=== PATIENT | female | born 1995 | race Caucasian/White ===

== ENCOUNTER 2017-05-21 18:46 | Emergency (ER) | payer OTHER ==
[~2017-05-21] VITALS: Ht 152.4 cm; Wt 48.1 kg
[2017-05-21 18:50] VITALS: TEMP 36.3; Ht 152.4 cm; Wt 48.1 kg
[2017-05-21] MEDS ORDERED: SODIUM CHLORIDE 0.9% 1000ML 1,000 ML IV STA (19:04)
[2017-05-21 19:14] VITALS: O2SAT 99
[2017-05-21 20:19] LABS: BASO % 0.2 %; BASO ABS # 0.01 K/uL (0-0.2); EOS % 0.2 %; EOS ABS # 0.01 K/uL (0-0.5); HEMATOCRIT 38.8 % (37-47); HEMOGLOBIN 13.5 g/dL (12.0-16.0); IG# 0.02 K/uL (0.00-0.02); LYMPH % 23.4 %; LYMPH ABS # 0.98 K/uL (1.2-3.4); MEAN CELL VOLUME 88.2 fL (80-100); MEAN CORPUSCULAR HEMOGLOBIN 30.7 pg (25-34); MEAN CORPUSCULAR HGB CONC 34.8 g/dl (32-36); MEAN PLATELET VOLUME 11.7 fL (7.4-10.4); MONO % 7.6 %; MONO ABS # 0.32 K/uL (0.11-0.59); NEUT % 68.1 %; NEUT ABS # 2.85 K/uL (1.4-6.5); PLATELET COUNT 215 K/uL (130-400); RED CELL DISTRIBUTION WIDTH CV 12.6 % (11.5-14.5); RED CELL DISTRIBUTION WIDTH SD 41.1 fL (36.4-46.3); WHITE BLOOD COUNT 4.19 K/uL (4.8-10.8)
[2017-05-21 20:46] LABS: ALBUMIN 4.1 gm/dl (3.4-5.0); ALT/SGPT 17 U/L (12-78); AST/SGOT 20 U/L (15-37); BLOOD UREA NITROGEN 11 mg/dl (7-18); CALCIUM 8.4 mg/dl (8.5-10.1); CARBON DIOXIDE 23 mmol/L (21-32); CREATININE 0.71 mg/dl (0.60-1.20); GLUCOSE 87 mg/dl (70-99); LIPASE 96 U/L (73-393); POTASSIUM 3.8 mmol/L (3.5-5.1); SODIUM 140 mmol/L (136-145)
[2017-05-21 20:49] LABS: ALKALINE PHOSPHATASE 44 U/L (45-117); TOTAL PROTEIN 7.6 gm/dl (6.4-8.2)
[2017-05-21 20:56] VITALS: BP 108/79; PULSE 86; O2SAT 97
--- NOTE | 2017-05-21 23:18 | EMERGENCY ROOM VISIT NOTE ---
History Report prepared by Miguel: Marisa Torres Under the Supervision of: Dr. Alfredo Hall M.D. First contact with patient: 18:54 Chief Complaint: SYNCOPE (NEAR SYNCOPE) Stated Complaint: SEIZURE History of Present Illness The patient is a 22 year old female who presents to the Emergency Room with complaints of an episode of syncope occurring half an hour ago. The patient states that she was at a crowded concert. She reports that she all of a sudden felt warm and weighed down. She states that her legs became weak and had wobbly vision. She reports that she then fell to the ground. She states that she felt fine once she was outside, but her friends were concerned and wanted her to come get checked out. The patient complains of some wobbly vision still. The patient denies nausea, a headache, numbness, incontinence, abdominal pain, rib pain, biting her tongue, shortness of breath, chest pain, neck pain, hitting her head, hematochezia, heavy vaginal bleeding, urinary symptoms, hitting her head, a history of seizures, and a history of passing out. She notes that she ate before going out and believes she has drank enough liquids today. She notes that she was sick last week, but is no longer experiencing any symptoms. The patient notes that she smokes marijuana. Source of History: patient Onset: half hour ago Position: other (global) Quality: other (syncope) Timing: other (episode) Modifying Factors (Relieving): other (cool air) Associated Symptoms: + weakness, No headache, No neck pain, No chest pain, No SOB, No nausea, No abdominal pain, No hematochezia, No urinary symptoms, No numbness Note: The patient complains of vision changes. The patient denies incontinence, rib pain, biting her tongue, hitting her head, and heavy vaginal bleeding. Review of Systems See HPI for pertinent positives & negatives. A total of 10 systems reviewed and were otherwise negative. Past Medical & Surgical Medical Problems: (1) No Known Active Medical Problems Old medical records were reviewed. Nurse's notes were reviewed and I agree with. Family History No significant family history Social History Smoking Status: Current Every Day Smoker Drug Use: marijuana Marital Status: in relationship Housing Status: lives with roommate Occupation Status: [employer] student Current/Historical Medications No Active Prescriptions or Reported Meds Allergies Coded Allergies: No Known Allergies (Unverified , 05/21/17) Physical Exam Vital Signs Date Time Temp Pulse Resp B/P (MAP) Pulse Ox O2 Delivery O2 Flow Rate FiO2 05/21/17 20:56 86 17 108/79 97 05/21/17 20:27 84 05/21/17 20:15 83 22 99 Room Air 05/21/17 19:49 97/72 05/21/17 19:45 84 19 99 Room Air 05/21/17 19:15 95 23 98 Room Air 05/21/17 19:14 87 22 109/82 99 Room Air 05/21/17 19:14 99 Room Air 05/21/17 18:50 36.3 103 18 98/69 99 Room Air Physical Exam General: Non-ill appearing young female in no acute distress. HEENT: Normal cephalic atraumatic. Pupils are equal round and reactive to light. Extraocular movements are intact. Oropharynx is pink with moist mucous membranes. No swelling of the mouth lips or tongue. Neck: Supple with a midline trachea. No meningeal signs or stiffness, no JVD or bruits. No Stridor. Chest: Clear to auscultation bilaterally. No wheezes or rhonchi. No increased work of breathing. Heart: regular rate and rhythm. Abdomen: Soft nontender, nondistended without rebound guarding or rigidity. Extremities: No cyanosis clubbing or edema. No calf tenderness or assymetry. Abrasion to left knee. Spine/Back. Non tender to palpation. No CVA tenderness Skin: Good turgor without rashes. Neurologic exam: Cranial nerves two through 12 are intact. Motor and sensation are intact and symmetrical throughout. Medical Decision & Procedures Laboratory Results 05/21/17 20:11 Red Blood Count 4.40, Mean Corpuscular Volume 88.2, Mean Corpuscular Hemoglobin 30.7, Mean Corpuscular Hemoglobin Concent 34.8, Mean Platelet Volume 11.7, Neutrophils (%) (Auto) 68.1, Lymphocytes (%) (Auto) 23.4, Monocytes (%) (Auto) 7.6, Eosinophils (%) (Auto) 0.2, Basophils (%) (Auto) 0.2, Neutrophils # (Auto) 2.85, Lymphocytes # (Auto) 0.98, Monocytes # (Auto) 0.32, Eosinophils # (Auto) 0.01, Basophils # (Auto) 0.01 05/21/17 20:11 Test 05/21/17 20:11 White Blood Count 4.19 K/uL (4.8-10.8) Red Blood Count 4.40 M/uL (4.2-5.4) Hemoglobin 13.5 g/dL (12.0-16.0) Hematocrit 38.8 % (37-47) Mean Corpuscular Volume 88.2 fL (80-100) Mean Corpuscular Hemoglobin 30.7 pg (25-34) Mean Corpuscular Hemoglobin Concent 34.8 g/dl (32-36) Platelet Count 215 K/uL (130-400) Mean Platelet Volume 11.7 fL (7.4-10.4) Neutrophils (%) (Auto) 68.1 % Lymphocytes (%) (Auto) 23.4 % Monocytes (%) (Auto) 7.6 % Eosinophils (%) (Auto) 0.2 % Basophils (%) (Auto) 0.2 % Neutrophils # (Auto) 2.85 K/uL (1.4-6.5) Lymphocytes # (Auto) 0.98 K/uL (1.2-3.4) Monocytes # (Auto) 0.32 K/uL (0.11-0.59) Eosinophils # (Auto) 0.01 K/uL (0-0.5) Basophils # (Auto) 0.01 K/uL (0-0.2) RDW Standard Deviation 41.1 fL (36.4-46.3) RDW Coefficient of Variation 12.6 % (11.5-14.5) Immature Granulocyte % (Auto) 0.5 % Immature Granulocyte # (Auto) 0.02 K/uL (0.00-0.02) Anion Gap 9.0 mmol/L (3-11) Est Creatinine Clear Calc Drug Dose 90.8 ml/min Estimated GFR () 142.1 Estimated GFR (Non- 122.6 BUN/Creatinine Ratio 15.9 (10-20) Calcium Level 8.4 mg/dl (8.5-10.1) Total Bilirubin 0.2 mg/dl (0.2-1) Direct Bilirubin < 0.1 mg/dl (0-0.2) Aspartate Amino Transf (AST/SGOT) 20 U/L (15-37) Alanine Aminotransferase (ALT/SGPT) 17 U/L (12-78) Alkaline Phosphatase 44 U/L (45-117) Troponin I < 0.015 ng/ml (0-0.045) Total Protein 7.6 gm/dl (6.4-8.2) Albumin 4.1 gm/dl (3.4-5.0) Lipase 96 U/L (73-393) Human Chorionic Gonadotropin, Qual NEG (NEG) Laboratory studies as stated above per my review. Medications Administered Medications (Trade) Dose Ordered Sig/George Route Start Time Stop Time Status Last Admin Dose Admin Sodium Chloride 1,000 ml @ 999 mls/hr Q1H1M STAT IV 05/21/17 19:04 05/21/17 20:04 DC 05/21/17 19:23 999 MLS/HR ECG Per My Interpretation Indication: syncope Rate (beats per minute): 88 Rhythm: sinus with SA Findings: no acute ischemic change, no ectopy Comparison ECG Date: no prior available ED Course 1853: Past medical records reviewed. The patient was evaluated in room B2, and a complete history and physical examination were performed. 1903: Ordered NSS 1000 ml @ 999 mls/hr IV. 2015: I reevaluated the patient and she is comfortable. Nurses had to redraw her blood work. 2050: Upon reevaluation, the patient is resting comfortably. I discussed the results and treatment plan with her. She verbalized agreement of the treatment plan. The patient was discharged home. Medical Decision Differential diagnoses include syncope, seizure, vasovagal, arrhythmia, electrolyte abnormality, metabolic abnormality. This patient comes in as described above. He was placed in room B2 she had what sounds like a vasovagal episode rather than a seizure. She had been drinking alcohol was in a hot room and also smoked marijuana. She said she did not drink much. She had no tongue biting or incontinence. No seizure history. She feels better now she did have prodromal symptoms where she felt hot and clammy and nauseated. IV access was established and blood work was obtained. She was hydrated normal saline. EKG does not suggest acute coronary syndrome or any significant arrhythmia. She has no acute electrolyte or metabolic abnormalities. Her troponin is not elevated. She is feeling better and would like to go home. I encouraged her not to drink anymore alcohol use any drugs, drink plenty of fluids and return if any new problems or concerns. She was happy the plan and discharged home. Medication Reconcilliation Current Medication List: was personally reviewed by me Blood Pressure Screening Patient's blood pressure: Normal blood pressure Blood pressure disposition: Did not require urgent referral Impression Primary Impression: Vasovagal syncope Scribe Attestation The scribe's documentation has been prepared under my direction and personally reviewed by me in its entirety. I confirm that the note above accurately reflects all work, treatment, procedures, and medical decision making performed by me. Departure Information Dispostion Home / Self-Care Prescriptions No Active Prescriptions or Reported Meds Referrals No Doctor, Assigned (PCP) Forms HOME CARE DOCUMENTATION FORM, IMPORTANT VISIT INFORMATION Patient Instructions My [facility] Additional Instructions Rest. Drink plenty of fluids. Do not drink alcohol or use marijuana Return if: Worsening of symptoms, chest pain, recurrence of symptoms, fever chills, any new problems or concerns Follow-up with your doctor/student health clinic this week.
== END 2017-05-21 20:57 | disposition home or self-care (01) ==
LOC: C.EDB 18:48
DX: R55 Syncope and collapse (principal); F17.200 Nicotine dependence, unspecified, uncomplicated; F12.90 Cannabis use, unspecified, uncomplicated